=== PATIENT | female | born 1980 | race Caucasian/White ===

== ENCOUNTER 2018-04-02 17:26 | Emergency (ER) | payer MEDICAID ==
--- NOTE | 2018-04-02 17:31 | ER Report ---
History and Physical Time Seen By MD: 17:30 HPI/ROS CHIEF COMPLAINT: Abdominal pain HISTORY OF PRESENT ILLNESS: This is a 37-year-old female presents to the emergency department for abdominal pain. Patient states that over the last several days she's had increased abdominal pain, has had nausea and some vomiting and diarrhea. Today she developed significant right lower quadrant pain, she has had an appendectomy and cholecystectomy. No fevers or chills. No chest pain or shortness of breath. As I enter the room she is tearful holding her right side. No dysuria. REVIEW OF SYSTEMS: Constitutional: No fever, no chills. Eyes: No discharge. ENT: No sore throat. Cardiovascular: No chest pain, no palpitations. Respiratory: No cough, no shortness of breath. Gastrointestinal: As above. Genitourinary: No hematuria. Musculoskeletal: No back pain. Skin: No rashes. Neurological: No headache. Allergies: Coded Allergies: Latex, Natural Rubber (Verified Allergy, Mild, 11/11/16) aripiprazole (Verified Allergy, Mild, 11/11/16) penicillin G (Verified Allergy, Mild, 11/12/16) Home Meds Active Scripts Ondansetron Hcl (ZOFRAN) 4 Mg Tablet, 4 MG PO Q4-6H PRN for prn, #20 TAB Prov:SANDOVAL PRESTON [facility]- 04/02/18 Past Medical/Surgical History The patient has a past medical and surgical history of asthma, GERD, elevated liver enzymes, back injury, ADHD, depression, anxiety, suicidal ideation, multiple times, suicide attempts several times, appendectomy, cholecystectomy, bunionectomy Reviewed Nurses Notes: Yes Hx Smoking: No Smoking Status: Never Smoker Exposure to Second Hand Smoke?: No Hx Substance Use Disorder: Yes Hx Alcohol Use: Yes Constitutional Vital Sign - Last 24 Hours 04/02/18 04/02/18 04/02/18 04/02/18 17:26 17:32 17:33 17:56 Temp 99.0 Pulse 84 103 83 Resp 22 B/P (MAP) 129/91 (104) 129/91 Pulse Ox 96 96 95 O2 Delivery Room Air 04/02/18 04/02/18 04/02/18 04/02/18 18:00 18:05 18:30 18:35 Pulse 91 ??? B/P (MAP) 109/78 (88) ???/??? (6015) Pulse Ox 90 04/02/18 04/02/18 04/02/18 04/02/18 18:50 19:00 19:05 19:30 Pulse 87 B/P (MAP) 117/86 (96) 92/76 (81) 115/72 (86) Pulse Ox 94 04/02/18 04/02/18 19:35 20:30 Pulse 82 B/P (MAP) 105/70 (82) Pulse Ox 92 Physical Exam General Appearance: The patient is alert, has no immediate need for airway protection and no signs of toxicity. Eyes: Pupils equal and round no pallor or injection. ENT, Mouth: Mucous membranes are moist. Respiratory: There are no retractions, lungs are clear to auscultation. Cardiovascular: Regular rate and rhythm, no murmurs, clicks or rubs. Gastrointestinal: Abdomen is soft , tenderness to the right upper and lower quadrants mild tenderness to the left lower quadrant. no masses, bowel sounds normal. Neurological: Alert and oriented 4. Moving all extremities. Following all commands. No focal neuro deficits. Skin: Warm and dry, no rashes. Musculoskeletal: Neck is supple non tender. Extremities are nontender, nonswollen and have full range of motion. DIFFERENTIAL DIAGNOSIS: After history and physical exam differential diagnosis was considered for abdominal pain in a female including but not limited to ovarian cyst, pelvic inflammatory disease, gastroenteritis, ovarian torsion, urinary tract infection, and appendicitis. Medical Decision Making Data Points Result Diagram: 04/02/18 1747 04/02/18 1747 Laboratory Hematology Test 04/02/18 17:34 04/02/18 17:40 04/02/18 17:47 Urine Color Yellow Urine Clarity Slightly-cloudy Urine pH 5.0 pH (4.8-9.5) Urine Specific [place] 1.027 Urine Protein Negative mg/dL (NEGATIVE) Urine Glucose (UA) Negative mg/dL (NEGATIVE) Urine Ketones Negative mg/dL (NEGATIVE) Urine Blood Negative (NEGATIVE) Urine Nitrite Negative (NEGATIVE) Urine Bilirubin Negative (NEGATIVE) Urine Urobilinogen Negative mg/dL (0.2-1.9) Urine Leukocyte Esterase Negative (NEGATIVE) Urine RBC <1 /HPF (0-2/HPF) Urine WBC 2 /HPF (0-5/HPF) Urine Squamous Epithelial Cells Many /LPF (</=FEW) Urine Bacteria Few /HPF (NONE-FEW) Urine Mucus Few /HPF (NONE-FEW) Urine HCG, Qualitative Negative (NEGATIVE) Red Blood Count 5.00 M/uL (4.17-5.56) Mean Corpuscular Volume 88.2 fL (80.0-96.0) Mean Corpuscular Hemoglobin 30.7 pg (26.0-33.0) Mean Corpuscular Hemoglobin Concent 34.8 g/dL (32.0-36.0) Red Cell Distribution Width 13.0 % (11.5-14.5) Mean Platelet Volume 8.8 fL (7.2-11.1) Neutrophils (%) (Auto) 52.0 % (39.4-72.5) Lymphocytes (%) (Auto) 37.0 % (17.6-49.6) Monocytes (%) (Auto) 9.8 % (4.1-12.4) Eosinophils (%) (Auto) 0.8 % (0.4-6.7) Basophils (%) (Auto) 0.4 % (0.3-1.4) Nucleated RBC Relative Count (auto) 0.0 /100WBC Neutrophils # (Auto) 3.8 K/uL (2.0-7.4) Lymphocytes # (Auto) 2.7 K/uL (1.3-3.6) Monocytes # (Auto) 0.7 K/uL (0.3-1.0) Eosinophils # (Auto) 0.1 K/uL (0.0-0.5) Basophils # (Auto) 0.0 K/uL (0.0-0.1) Nucleated RBC Absolute Count (auto) 0.00 K/uL Sodium Level 141 mmol/L (137-145) Potassium Level 3.8 mmol/L (3.5-5.0) Chloride Level 107 mmol/L (98-107) Carbon Dioxide Level 22 mmol/L (22-31) Blood Urea Nitrogen 13 mg/dl (7-18) Creatinine 0.80 mg/dl (0.52-1.04) Glomerular Filtration Rate Calc > 60.0 Random Glucose 94 mg/dl (75-110) Calcium Level 9.5 mg/dl (8.4-10.2) Total Bilirubin 0.5 mg/dl (0.2-1.3) Aspartate Amino Transf (AST/SGOT) 20 U/L (0-35) Alanine Aminotransferase (ALT/SGPT) 14 U/L (0-56) Alkaline Phosphatase 61 U/L (0-126) Total Protein 8.1 g/dl (6.3-8.2) Albumin 4.5 g/dl (3.5-5.0) Lipase 166 U/L (23-300) Chemistry Test 04/02/18 17:34 04/02/18 17:40 04/02/18 17:47 Urine Color Yellow Urine Clarity Slightly-cloudy Urine pH 5.0 pH (4.8-9.5) Urine Specific [place] 1.027 Urine Protein Negative mg/dL (NEGATIVE) Urine Glucose (UA) Negative mg/dL (NEGATIVE) Urine Ketones Negative mg/dL (NEGATIVE) Urine Blood Negative (NEGATIVE) Urine Nitrite Negative (NEGATIVE) Urine Bilirubin Negative (NEGATIVE) Urine Urobilinogen Negative mg/dL (0.2-1.9) Urine Leukocyte Esterase Negative (NEGATIVE) Urine RBC <1 /HPF (0-2/HPF) Urine WBC 2 /HPF (0-5/HPF) Urine Squamous Epithelial Cells Many /LPF (</=FEW) Urine Bacteria Few /HPF (NONE-FEW) Urine Mucus Few /HPF (NONE-FEW) Urine HCG, Qualitative Negative (NEGATIVE) White Blood Count 7.4 k/uL (4.5-11.0) Red Blood Count 5.00 M/uL (4.17-5.56) Hemoglobin 15.4 g/dL (12.0-16.0) Hematocrit 44.1 % (34.0-47.0) Mean Corpuscular Volume 88.2 fL (80.0-96.0) Mean Corpuscular Hemoglobin 30.7 pg (26.0-33.0) Mean Corpuscular Hemoglobin Concent 34.8 g/dL (32.0-36.0) Red Cell Distribution Width 13.0 % (11.5-14.5) Platelet Count 261 K/uL (150-450) Mean Platelet Volume 8.8 fL (7.2-11.1) Neutrophils (%) (Auto) 52.0 % (39.4-72.5) Lymphocytes (%) (Auto) 37.0 % (17.6-49.6) Monocytes (%) (Auto) 9.8 % (4.1-12.4) Eosinophils (%) (Auto) 0.8 % (0.4-6.7) Basophils (%) (Auto) 0.4 % (0.3-1.4) Nucleated RBC Relative Count (auto) 0.0 /100WBC Neutrophils # (Auto) 3.8 K/uL (2.0-7.4) Lymphocytes # (Auto) 2.7 K/uL (1.3-3.6) Monocytes # (Auto) 0.7 K/uL (0.3-1.0) Eosinophils # (Auto) 0.1 K/uL (0.0-0.5) Basophils # (Auto) 0.0 K/uL (0.0-0.1) Nucleated RBC Absolute Count (auto) 0.00 K/uL Glomerular Filtration Rate Calc > 60.0 Calcium Level 9.5 mg/dl (8.4-10.2) Total Bilirubin 0.5 mg/dl (0.2-1.3) Aspartate Amino Transf (AST/SGOT) 20 U/L (0-35) Alanine Aminotransferase (ALT/SGPT) 14 U/L (0-56) Alkaline Phosphatase 61 U/L (0-126) Total Protein 8.1 g/dl (6.3-8.2) Albumin 4.5 g/dl (3.5-5.0) Lipase 166 U/L (23-300) Urinalysis Test 04/02/18 17:34 04/02/18 17:40 Urine Color Yellow Urine Clarity Slightly-cloudy Urine pH 5.0 pH (4.8-9.5) Urine Specific [place] 1.027 Urine Protein Negative mg/dL (NEGATIVE) Urine Glucose (UA) Negative mg/dL (NEGATIVE) Urine Ketones Negative mg/dL (NEGATIVE) Urine Blood Negative (NEGATIVE) Urine Nitrite Negative (NEGATIVE) Urine Bilirubin Negative (NEGATIVE) Urine Urobilinogen Negative mg/dL (0.2-1.9) Urine Leukocyte Esterase Negative (NEGATIVE) Urine RBC <1 /HPF (0-2/HPF) Urine WBC 2 /HPF (0-5/HPF) Urine Squamous Epithelial Cells Many /LPF (</=FEW) Urine Bacteria Few /HPF (NONE-FEW) Urine Mucus Few /HPF (NONE-FEW) Urine HCG, Qualitative Negative (NEGATIVE) EKG/Imaging Imaging Computed tomograpy abdomen and pelvis with IV contrast Indication: Abdominal pain. Comparison: None available. . Technique: Transaxial computed tomography images were obtained through the abdomen and pelvis following the injection of nonionic iodinated intravenous contrast. Reformatted coronal and sagittal images were also obtained. One of the following dose optimization techniques was utilized in the performance of this exam: Automated exposure control; adjustment of the mA and/or kV according to the patient's size; or use of an iterative reconstruction technique. Specific details can be referenced in the facility's radiology CT exam operational policy. Contrast: 75 ml of Isovue-370 IV contrast. Findings: There is respiratory motion artifact on the images through the lung bases and through the mid-upper abdomen. The artifact limits this examination. Lower lung pierce: Small fat-containing left-sided Bochdalek hernia. No focal infiltrate seen. Liver: No focal parenchymal abnormality of the liver. Biliary: There has been previous cholecystectomy. No biliary dilatation. Pancreas: Normal appearance. Spleen: Normal appearance. Adrenal glands: Unremarkable. Kidneys / retroperitoneum: Not well evaluated due to the artifact. No obvious calcified stone or hydronephrosis. No perinephric stranding is suggested. Bowel / peritoneum / mesenteries: Small and large intestine in the upper abdomen are not well evaluated due to the respiratory motion. In the pelvis, views of the colon and small bowel are unremarkable. No wall thickening or surrounding inflammatory stranding. There has been previous appendectomy. No free pelvic fluid. Lymph node assessment: No pathologic adenopathy identified. Pelvic structures: Left ovarian cyst/follicle measures 1.4 cm in size and is likely physiologic. No free pelvic fluid. Vessels: No atherosclerotic calcifications seen throughout a nonaneurysmal abdominal aorta and branches. Musculoskeletal / Body wall: There is an old healed fracture deformity through the low sacrum near the sacrococcygeal junction. No acute osseous abnormality is identified. IMPRESSION: 1. Respiratory motion limited examination without evidence of acute inflammatory process within the abdomen or the pelvis. 2. Changes of prior cholecystectomy and appendectomy. 3. Old healed low sacral fracture deformity near the sacrococcygeal junction. Correlate with history. 4. Physiologic follicle/cyst within the left ovary measuring 1.4 cm. No free pelvic fluid. Report Dictated By: Adrián Dickerson at 04/02/2018 6:52 PM Report E-Signed By: Adrián Dickerson at 04/02/2018 7:01 PM WSN:[id number] ED Course/Re-evaluation Clinical Indication for ER IV: Hydration, IV Access ED Course The patient was admitted to a room. A history of this were obtained. Differential diagnoses were considered. An IV was started. A CBC, CMP were obtained. A 1 L normal saline bolus was given. Lab studies unremarkable. Negative UA. Patient was given 4 mg IV Zofran, 50 g IV fentanyl, patient had significant relief of symptoms however the fentanyl did wear off patient was given 4 mg IV morphine. Patient had complete resolution of her nausea. A CT of the abdomen and pelvis was negative for any acute abnormalities. I suspect that this is likely a gastroenteritis, also it could be secondary to food poisoning, patient states that Tuesday morning before her symptoms began she ate a burrito at a gas station and then that afternoon began to have some symptomology. Patient was unable to provide a stool specimen, she was sent home with a prescription for stool studies and a specimen collection kit. I did review all the results with the patient. Patient does not have a primary care provider here in town, I did recommend following up and establishing with a provider as soon as possible. Patient exposed understanding and was discharged home. Patient was also sent home with a prescription for Zofran. Decision to Disposition Date: Apr 02, 2018 Decision to Disposition Time: 20:17 Depart Departure Latest Vital Signs Vital Signs Date Time Temp Pulse Resp B/P (MAP) Pulse Ox O2 Delivery O2 Flow Rate FiO2 04/02/18 20:30 105/70 (82) 04/02/18 19:35 82 92 04/02/18 17:33 99.0 22 Room Air Impression: Primary Impression: Abdominal pain Additional Impression: Nausea vomiting and diarrhea Condition: Improved Disposition: HOME OR SELF-CARE New Scripts Ondansetron Hcl (ZOFRAN) 4 Mg Tablet 4 MG PO Q4-6H PRN for prn, #20 TAB Prov: SANDOVAL PRESTON [employer] 04/02/18 Patient Instructions: Abdominal Pain (ED), Acute Diarrhea (ED), Acute Nausea and Vomiting (ED), Clear Liquid Diet (ED) Additional Instructions: Your laboratory studies and CT were negative for any acute findings. We're unable to collect a stool sample, I did send you home with a prescription and a collection kit please bring the prescription with the stool sample to the admitting desk they will contact the laboratory and the specimen will be taken to the lab. As you do not have a primary care provider, the results will go to the emergency department we will review the results, if they appear to be infectious we will l ikely start you on antibiotics. Take ibuprofen or Tylenol as needed for pain. Use the Zofran as needed for nausea or vomiting. Be sure to drink plenty of water. Get plenty of rest. Please try to establish with a primary care provider within the next 1-2 weeks. This likely is a gastroenteritis. Return to the emergency department for any other concerns or worsening symptoms. Clear liquid diet for the next 24 hours. Problem Qualifiers Primary Impression: Abdominal pain Abdominal location: right lower quadrant Qualified Codes: R10.31 - Right lower quadrant pain SANDOVAL PRESTON [employer] Apr 02, 2018 17:30
[2018-04-02] MEDS ORDERED: NS(*) 0.9% 1000 ML BAG 1,000 ML IV ONE (17:44)
[2018-04-02] MEDS ORDERED: fentaNYL CITR 100 MCG/2 ML AMP IVP ONE (17:45)
[2018-04-02] MEDS ORDERED: ONDANSETRON 4 MG/2 ML VIAL IVP ONE (17:45)
[2018-04-02 17:54] LABS: PLATELET COUNT, AUTOMATED 261 K/uL (150-450)
[2018-04-02] MEDS ORDERED: IOPAMIDOL 76% 50 ML INFUS BTL 50 ML ONE (18:05)
[2018-04-02] MEDS ORDERED: MORPHINE 4 MG/ML SDV IVP ONE (18:25)
--- NOTE | 2018-04-02 19:06 | RADIOLOGY IMAGING REPORT ---
FACILITY: [facility] - [place] PATIENT NAME: Cyndy Braun : 1980 MR: [id number] V: [id number] EXAM DATE: [id number] ORDERING PHYSICIAN: SANDOVAL PRESTON TECHNOLOGIST: Location: [facility] Patient: Cyndy Braun : 1980 Visit/Account:[id number] Date of Sevice: 04/02/2018 Computed tomograpy abdomen and pelvis with IV contrast Indication: Abdominal pain. Comparison: None available. . Technique: Transaxial computed tomography images were obtained through the abdomen and pelvis follo wing the injection of nonionic iodinated intravenous contrast. Reformatted coronal and sagittal image s were also obtained. One of the following dose optimization techniques was utilized in the performance of this exam: Autom ated exposure control; adjustment of the mA and/or kV according to the patient's size; or use of an i terative reconstruction technique. Specific details can be referenced in the facility's radiology C T exam operational policy. Contrast: 75 ml of Isovue-370 IV contrast. Findings: There is respiratory motion artifact on the images through the lung bases and through the mid-upper a bdomen. The artifact limits this examination. Lower lung pierce: Small fat-containing left-sided Bochdalek hernia. No focal infiltrate seen. Liver: No focal parenchymal abnormality of the liver. Biliary: There has been previous cholecystectomy. No biliary dilatation. Pancreas: Normal appearance. Spleen: Normal appearance. Adrenal glands: Unremarkable. Kidneys / retroperitoneum: Not well evaluated due to the artifact. No obvious calcified stone or hydr onephrosis. No perinephric stranding is suggested. Bowel / peritoneum / mesenteries: Small and large intestine in the upper abdomen are not well evaluat ed due to the respiratory motion. In the pelvis, views of the colon and small bowel are unremarkable. No wall thickening or surrounding inflammatory stranding. There has been previous appendectomy. No f ree pelvic fluid. Lymph node assessment: No pathologic adenopathy identified. Pelvic structures: Left ovarian cyst/follicle measures 1.4 cm in size and is likely physiologic. N o free pelvic fluid. Vessels: No atherosclerotic calcifications seen throughout a nonaneurysmal abdominal aorta and branch es. Musculoskeletal / Body wall: There is an old healed fracture deformity through the low sacrum near th e sacrococcygeal junction. No acute osseous abnormality is identified. IMPRESSION: 1. Respiratory motion limited examination without evidence of acute inflammatory process within the a bdomen or the pelvis. 2. Changes of prior cholecystectomy and appendectomy. 3. Old healed low sacral fracture deformity near the sacrococcygeal junction. Correlate with history. 4. Physiologic follicle/cyst within the left ovary measuring 1.4 cm. No free pelvic fluid. Report Dictated By: Adrián Dickerson at 04/02/2018 6:52 PM Report E-Signed By: Adrián Dickerson at 04/02/2018 7:01 PM WSN:[id number]
[2018-04-02] MEDS ORDERED: ONDA4TAB97 PO (20:13)
[2018-04-02] MEDS ORDERED: ONDANSETRON 4 MG ODT TH SL ONE (20:15)
[2018-04-02 20:30] VITALS: BP 105/70
== END 2018-04-02 20:40 | disposition home or self-care (01) ==
LOC: ER 17:34
DX: R10.31 Right lower quadrant pain (principal); R11.2 Nausea with vomiting, unspecified
CPT/HCPCS: 74177; 81001; 81025; 83690; 85025; 96361; 96374; 96375; 99284; J2270; J2405; J3010; J7030; Q9967; S0119; 82040; 82247; 82310; 82374; 82435; 82565; 82947; 84075; 84132; 84155; 84295; 84450; 84460; 84520